=== PATIENT | male | born 1980 ===

== ENCOUNTER 2018-03-24 23:03 | Emergency (ER) | payer SELFPAY ==
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
== END 2018-03-24 23:55 | disposition home or self-care (01) ==
LOC: MW.ED 23:03
DX: M62.838 Other muscle spasm (principal); Z56.6 Other physical and mental strain related to work
CPT/HCPCS: 93005; 99283-25